=== PATIENT | male | born 1940 | race Caucasian/White ===

== ENCOUNTER 2018-07-09 16:27 | Observation (INO) | payer MEDICARE, OTHER ==
[2018-07-09] MEDS ORDERED: ASPIRIN 81 MG PO STA (17:11)
[2018-07-09 17:14] LABS: Basophils # (A) 0.1 k/uL (0-0.2); Basophils % (A) 1 %; Eosinophils # (A) 0.2 k/uL (0-0.7); Eosinophils % (A) 4 %; HCT 35.9 % (39.0-53.0); HGB 12.4 gm/dL (13.0-17.5); Lymphocytes # (A) 1.3 k/uL (1.0-4.8); Lymphocytes % (A) 29 %; MCH 31.4 pg (25.0-35.0); MCHC 34.4 g/dL (31.0-37.0); Mean Platelet Volume 6.7; Monocytes # (A) 0.4 k/uL (0-1.0); Monocytes % (A) 10 %; Neutrophils # (A) 2.3 k/uL (1.3-7.7); Neutrophils % (A) 53 %; Platelet Count 198 k/uL (150-450); RBC 3.95 m/uL (4.30-5.90); RDW 13.5 % (11.5-15.5); WBC 4.4 k/uL (3.8-10.6)
[2018-07-09 17:22] LABS: Calcium 9.2 mg/dL (8.4-10.2); Potassium 4.1 mmol/L (3.5-5.1); Total Bilirubin 0.5 mg/dL (0.2-1.3); Total Protein 6.6 g/dL (6.3-8.2)
[2018-07-09 17:23] LABS: INR 1.1 (<1.2); Partial Thromboplastin Time 23.6 sec (22.0-30.0); Prothrombin Time 10.4 sec (9.0-12.0)
--- NOTE | 2018-07-09 17:36 | ED ---
Chest Pain HPI - General Source: patient, RN notes reviewed Mode of arrival: wheelchair Limitations: altered mental status <Qasim Henriquez - Last Filed: 07/09/18 18:45> <Odin Dhillon - Last Filed: 07/09/18 22:14> - General Chief Complaint: Chest Pain Stated Complaint: Chest Pain Time Seen by Provider: 07/09/18 17:10 - History of Present Illness Initial Comments: 78-year-old male presents emergency Department with chief complaint of chest pain. Patient states started approximately an hour ago. He states initially it was a 7/10 pain and anterior to left side. The pain had dulled prior to leaving the house and has essentially dissipated. Patient does have extensive cardiac history including 7 stents, hyperlipidemia, hypertension and diabetes. Patient denies any shortness breath, diaphoretic episodes, headache, dizziness, nausea vomiting. Patient states that he did injure the right side of his chest wall as he was reaching back to get into his pocket he felt that he strained a muscle. He states that pain is not present currently. 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 (Qasim Henriquez) - Related Data Home Medications Medication Instructions Recorded Confirmed Acetyl L Carnitine 500 500 mg PO DAILY 07/09/18 07/09/18 Acetylcysteine [Nac] 500 mg PO DAILY 07/09/18 07/09/18 Ascorbic Acid [Vitamin C] 2,000 mg PO DAILY 07/09/18 07/09/18 Aspirin [Adult Low Dose Aspirin EC] 81 mg PO DAILY 07/09/18 07/09/18 Cholecalciferol [Vitamin D3] 5,000 unit PO DAILY 07/09/18 07/09/18 Citalopram Hydrobromide [CeleXA] 10 mg PO DAILY 07/09/18 07/09/18 Clopidogrel [Plavix] 75 mg PO DAILY 07/09/18 07/09/18 Cognifactors 2 cap PO BID 07/09/18 07/09/18 Curcumin 95 500 mg PO DAILY 07/09/18 07/09/18 Cyanocobalamin [Vitamin B-12 1,000 mcg SQ TUFR 07/09/18 07/09/18 Injection] Fenofibrate Nanocrystallized 145 mg PO DAILY 07/09/18 07/09/18 [Fenofibrate] Folate 5,000 mcg PO DAILY 07/09/18 07/09/18 L.acidoph,Paracasei, B.lactis 1 cap PO DAILY 07/09/18 07/09/18 [Probiotic] Levothyroxine Sodium [Synthroid] 250 mcg PO DAILY 07/09/18 07/09/18 Magnesium Potassium 250-100 2 tab PO BID 07/09/18 07/09/18 Melatonin 3 mg PO HS PRN 07/09/18 07/09/18 Multivitamins, Thera [Multivitamin 1 tab PO DAILY 07/09/18 07/09/18 (formulary)] Nattokinase 50 mg PO HS 07/09/18 07/09/18 Opti Zinc 30 mg PO DAILY 07/09/18 07/09/18 Pantoprazole [Protonix] 40 mg PO DAILY 07/09/18 07/09/18 Prasterone (Dhea)/Calcium Carb 1 tab PO DAILY 07/09/18 07/09/18 [Dhea 50 mg Tablet] Resveratrol 300 mg PO DAILY 07/09/18 07/09/18 Rivastigmine Tartrate [Exelon] 6 mg PO BID 07/09/18 07/09/18 Simvastatin [Zocor] 40 mg PO HS 07/09/18 07/09/18 Tamsulosin HCl [Flomax] 0.4 mg PO HS 07/09/18 07/09/18 Ubidecarenone [Co Q-10] 100 mg PO DAILY 07/09/18 07/09/18 Vitamin K2 100 mg PO DAILY 07/09/18 07/09/18 glipiZIDE XL [Glucotrol XL] 5 mg PO DAILY 07/09/18 07/09/18 quiNINE SULFATE 324 mg PO DAILY PRN 07/09/18 07/09/18 sitaGLIPtin PHOSPHATE [Januvia] 100 mg PO DAILY 07/09/18 07/09/18 Allergies Allergy/AdvReac Type Severity Reaction Status Date / Time No Known Allergies Allergy Verified 07/09/18 17:58 Review of Systems ROS Other: All systems not noted in ROS Statement are negative. <Qasim Henriquez - Last Filed: 07/09/18 18:45> ROS Other: All systems not noted in ROS Statement are negative. <Odin Dhillon - Last Filed: 07/09/18 22:14> ROS Statement: Those systems with pertinent positive or pertinent negative responses have been documented in the HPI. EKG Findings - EKG Comments: EKG Findings:: EKG 0.16:42 normal sinus rhythm with a rate of 78 OH 184 QRS 98 QT/QTC 424/[address] elevation or depression noted <Qasim Henriquez Joshua - Last Filed: 07/09/18 18:45> Past Medical History Past Medical History: Coronary Artery Disease (CAD), Dementia, Hyperlipidemia, Hypertension Additional Past Medical History / Comment(s): diverticulitis History of Any Multi-Drug Resistant Organisms: None Reported Past Surgical History: Bowel Resection, Heart Catheterization With Stent, Orthopedic Surgery, Pacemaker Additional Past Surgical History / Comment(s): hazel knee Past Psychological History: No Psychological Hx Reported Smoking Status: Former smoker Past Alcohol Use History: None Reported Past Drug Use History: None Reported <Qasim Henriquez M - Last Filed: 07/09/18 18:45> - Past Family History Father Family Medical History: Unable to Obtain Additional Family Medical History / Comment(s): patient cant remember Mother Family Medical History: Unable to Obtain Additional Family Medical History / Comment(s): patient cant remember <Odin Dhillon N - Last Filed: 07/09/18 22:14> General Exam Limitations: no limitations General appearance: alert, in no apparent distress Head exam: Present: atraumatic, normocephalic, normal inspection Respiratory exam: Present: normal lung sounds bilaterally. Absent: respiratory distress, wheezes, rales, rhonchi, stridor, chest wall tenderness Cardiovascular Exam: Present: regular rate, normal rhythm, normal heart sounds. Absent: systolic murmur, diastolic murmur, rubs, gallop, clicks GI/Abdominal exam: Present: soft, normal bowel sounds. 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 Patient has extensive cardiac history including multiple stents, coronary disease, hyponatremia, hypertension. Patient troponin is 0.017. Patient will be admitted for serial enzymes and cardiology evaluation. (Qasim Henriquez) 78-year-old male presenting for chest pain. Patient's pain is resolved at the time my evaluation. He does have significant history of coronary artery disease. Last heart cath was in 2012 according to the patient. Patient remains asymptomatic while in the emergency department, he will be In observation for serial cardiac enzymes and cardiology consultation. (Odin Dhillon) Disposition <Qasim Henriquez - Last Filed: 07/09/18 18:45> <Odin Dhillon - Last Filed: 07/09/18 22:14> Clinical Impression: Chest pain Disposition: ADMITTED IP TO THIS HOSP Condition: Stable
[2018-07-09 17:39] LABS: Creatine Kinase MB 1.3 ng/mL (0.0-2.4); Troponin I 0.017 ng/mL (0.000-0.034)
--- NOTE | 2018-07-09 18:28 | XR ---
EXAMINATION TYPE: XR chest 2V DATE OF EXAM: 07/09/2018 COMPARISON: NONE HISTORY: Chest pain TECHNIQUE: Frontal and lateral views of the chest are obtained. FINDINGS: There is no heart failure nor confluent pneumonic infiltrate. Costophrenic angles are alicia r. Heart size is normal. Thoracic aorta is atheromatous. There are chest leads. There is left axillar y pacemaker with the lead tips in the right ventricle. IMPRESSION: No active cardiopulmonary disease. Right shoulder prosthesis.
[2018-07-09] MEDS ORDERED: NITROGLYCERIN SL TABS 0.4 MG TAB SUBLINGUAL PRN (18:46)
[2018-07-09] MEDS ORDERED: MELATONIN 3 MG TABLET PO PRN (19:46)
[2018-07-09] MEDS ORDERED: NALOXONE 0.4 MG/ML 1 ML VIAL IV PRN (20:25)
[2018-07-09 20:27] LABS: Glucose,Whole Blood 143 mg/dL (75-99)
[2018-07-09] MEDS: INSULIN ASPART 100 UNIT/ML 1 ML 10 ML VIAL SQ SCH (20:28)
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
[2018-07-09] MEDS ORDERED: TAMSULOSIN 0.4 MG CAP.ER.24H PO SCH (21:00)
[2018-07-09] MEDS ORDERED: ATORVASTATIN 20 MG TAB PO SCH (21:00)
[2018-07-09] MEDS: HEPARIN SODIUM,PORCINE 5,000 UNIT/ML 1 ML VIAL SQ SCH (23:00)
[2018-07-09 23:26] LABS: Creatine Kinase MB 1.6 ng/mL (0.0-2.4); Troponin I 0.018 ng/mL (0.000-0.034)
[2018-07-10 03:29] VITALS: RESP 18
[2018-07-10 04:50] LABS: Basophils % (A) 1 %; Eosinophils # (A) 0.2 k/uL (0-0.7); Eosinophils % (A) 6 %; HCT 37.2 % (39.0-53.0); HGB 12.8 gm/dL (13.0-17.5); Lymphocytes # (A) 1.5 k/uL (1.0-4.8); Lymphocytes % (A) 35 %; MCH 31.4 pg (25.0-35.0); MCHC 34.2 g/dL (31.0-37.0); MCV 91.6 fL (80.0-100.0); Monocytes # (A) 0.5 k/uL (0-1.0); Monocytes % (A) 11 %; Neutrophils # (A) 1.8 k/uL (1.3-7.7); Neutrophils % (A) 44 %; Platelet Count 192 k/uL (150-450); RBC 4.06 m/uL (4.30-5.90); RDW 13.5 % (11.5-15.5); WBC 4.2 k/uL (3.8-10.6)
[2018-07-10 05:01] LABS: Calcium 9.3 mg/dL (8.4-10.2); Potassium 4.2 mmol/L (3.5-5.1); Total Bilirubin 0.4 mg/dL (0.2-1.3); Total Protein 6.7 g/dL (6.3-8.2)
[2018-07-10 05:34] LABS: Creatine Kinase MB 2.4 ng/mL (0.0-2.4); Troponin I 0.02 ng/mL (0.000-0.034)
[2018-07-10] MEDS ORDERED: LEVOTHYROXINE 125 MCG TAB PO SCH (06:30)
[2018-07-10 06:49] LABS: Glucose,Whole Blood 127 mg/dL (75-99)
[2018-07-10] MEDS ORDERED: PANTOPRAZOLE 40 MG TABLET PO SCH (07:30)
[2018-07-10] MEDS ORDERED: CLOPIDOGREL 75 MG TAB PO SCH (09:00)
[2018-07-10] MEDS ORDERED: ASPIRIN 81 MG PO SCH (09:00)
[2018-07-10] MEDS ORDERED: FENOFIBRATE 160 MG TAB PO SCH (09:00)
[2018-07-10] MEDS ORDERED: CITALOPRAM HYDROBROMIDE 10 MG TAB PO SCH (09:00)
[2018-07-10] MEDS ORDERED: ASPIRIN 325 MG TAB PO SCH (09:00)
[2018-07-10] MEDS ORDERED: REGADENOSON 0.4 MG/5 ML SYRINGE IV ONE (09:11)
[2018-07-10] MEDS ORDERED: AMINOPHYLLINE 500 MG/20 ML VIAL IV PRN (09:11)
[2018-07-10] MEDS: INSULIN ASPART 100 UNIT/ML 1 ML 10 ML VIAL SQ SCH (09:27)
[2018-07-10] MEDS ORDERED: LISINOPRIL 10 MG TAB PO SCH (10:00)
--- NOTE | 2018-07-10 10:44 | P.CRDCN ---
History of Present Illness History of present illness: Mr. Ellsworth is a pleasant 78-year-old male past medical history significant for coronary artery disease s/p multiple stents, 6 or 7 per the , hypertension, bradycardia s/p pacemaker implantation, dyslipidemia, diabetes mellitus and alzheimers/dementia. The patient is alert and conversational but unable to verbalize or recall any of the previous days events or his symptoms. He verbalizes at the time of my exam he is chest pain free with no shortness of breath, dizziness, palpitations, nausea, vomiting or diaphoresis. All information is obtained from his . Jaki states they flew in from [place] to stay with their son 2 days ago. She feels as though he hasn't been acting himself since they got here. Yesterday while sitting in the recliner he told his he had a pain in the left precordial region. There was mild labored breathing per the family. He never complained of dizziness, nausea, vomiting, diaphoresis or palpitations. Due to his cardiac history they brought him in for evaluation. At the time of my exam he is seen laying flat in bed in no acute distress. He doesn't recall having any symptoms of chest pain or shortness of breath. He follows with a legal administrator from [facility], Dr. Polanco. EKG reveals sinus mechanism with no acute ST or T-wave abnormalities noted. Repeat this morning reveals atrial paced rhythm. Chest xray negative for an acute cardiopulmonary process. Laboratory data reviewed, hemoglobin 12.8, platelets 192, sodium 138, potassium 4.2, creatinine 0.99, cardiac enzymes negative 3, LDL 85, HDL 33, triglycerides 233 with total cholesterol 165. Current cardiac medications include simvastatin 40 mg daily, fenofibrate 145 mg daily, Plavix 75 mg daily and aspirin 81 mg daily. There are no old records to review. states his pacemaker was placed 03/2017 and his last catherization and stent was done in 2012. Records received from his primary legal administrator indicate he has known multivessel coronary artery disease with previous intervention of the circumflex and RCA. Review of Systems At the time of my exam: CONSTITUTIONAL: Denies fever. Denies chills. EYES: Denies blurred vision. Denies vision changes. Denies eye pain. EARS, NOSE, MOUTH & THROAT: Denies headache. Denies sore throat. Denies ear pain. CARDIOVASCULAR: Denies chest pain. Denies shortness of breath. Denies orthopnea. Denies PND. Denies palpitations. RESPIRATORY: Denies cough. GASTROINTESTINAL: Denies abdominal pain. Denies diarrhea. Denies constipation. Denies nausea. Denies vomiting. MUSCULOSKELETAL: Denies myalgias. INTEGUMENTARY: Denies pruitis. Denies rash. NEUROLOGIC: Denies numbness. Denies tingling. Denies weakness. PSYCHIATRIC: Denies anxiety. Denies depression. ENDOCRINE: Denies fatigue. Denies weight change. Denies polydipsia. Denies polyurina. GENITOURINARY: Denies burning, hematuria or urgency with micturation. HEMATOLOGIC: Denies history of anemia. Denies bleeding. Past Medical History Past Medical History: Coronary Artery Disease (CAD), Dementia, Diabetes Mellitus , Hyperlipidemia, Hypertension Additional Past Medical History / Comment(s): diverticulitis, pacemaker 2/2 bradycardia Last Myocardial Infarction Date:: 4 years ago per patient report History of Any Multi-Drug Resistant Organisms: None Reported Past Surgical History: Bowel Resection, Heart Catheterization With Stent, Orthopedic Surgery, Pacemaker Additional Past Surgical History / Comment(s): hazel knee Past Anesthesia/Blood Transfusion Reactions: No Reported Reaction Date of Last Stent Placement:: unk Type of Cardiac Device: Permanent Pacemaker Device Placement Date:: unk Past Psychological History: No Psychological Hx Reported Smoking Status: Former smoker Past Alcohol Use History: None Reported Past Drug Use History: None Reported - Past Family History Father Family Medical History: Unable to Obtain Additional Family Medical History / Comment(s): patient cant remember Mother Family Medical History: Unable to Obtain Additional Family Medical History / Comment(s): patient cant remember Medications and Allergies Home Medications Medication Instructions Recorded Confirmed Type Acetyl L Carnitine 500 500 mg PO DAILY 07/09/18 07/09/18 History Acetylcysteine [Nac] 500 mg PO DAILY 07/09/18 07/09/18 History Ascorbic Acid [Vitamin C] 2,000 mg PO DAILY 07/09/18 07/09/18 History Aspirin [Adult Low Dose Aspirin EC] 81 mg PO DAILY 07/09/18 07/09/18 History Cholecalciferol [Vitamin D3] 5,000 unit PO DAILY 07/09/18 07/09/18 History Citalopram Hydrobromide [CeleXA] 10 mg PO DAILY 07/09/18 07/09/18 History Clopidogrel [Plavix] 75 mg PO DAILY 07/09/18 07/09/18 History Cognifactors 2 cap PO BID 07/09/18 07/09/18 History Curcumin 95 500 mg PO DAILY 07/09/18 07/09/18 History Cyanocobalamin [Vitamin B-12 1,000 mcg SQ TUFR 07/09/18 07/09/18 History Injection] Fenofibrate Nanocrystallized 145 mg PO DAILY 07/09/18 07/09/18 History [Fenofibrate] Folate 5,000 mcg PO DAILY 07/09/18 07/09/18 History L.acidoph,Paracasei, B.lactis 1 cap PO DAILY 07/09/18 07/09/18 History [Probiotic] Levothyroxine Sodium [Synthroid] 250 mcg PO DAILY 07/09/18 07/09/18 History Magnesium Potassium 250-100 2 tab PO BID 07/09/18 07/09/18 History Melatonin 3 mg PO HS PRN 07/09/18 07/09/18 History Multivitamins, Thera [Multivitamin 1 tab PO DAILY 07/09/18 07/09/18 History (formulary)] Nattokinase 50 mg PO HS 07/09/18 07/09/18 History Opti Zinc 30 mg PO DAILY 07/09/18 07/09/18 History Pantoprazole [Protonix] 40 mg PO DAILY 07/09/18 07/09/18 History Prasterone (Dhea)/Calcium Carb 1 tab PO DAILY 07/09/18 07/09/18 History [Dhea 50 mg Tablet] Resveratrol 300 mg PO DAILY 07/09/18 07/09/18 History Rivastigmine Tartrate [Exelon] 6 mg PO BID 07/09/18 07/09/18 History Simvastatin [Zocor] 40 mg PO HS 07/09/18 07/09/18 History Tamsulosin HCl [Flomax] 0.4 mg PO HS 07/09/18 07/09/18 History Ubidecarenone [Co Q-10] 100 mg PO DAILY 07/09/18 07/09/18 History Vitamin K2 100 mg PO DAILY 07/09/18 07/09/18 History glipiZIDE XL [Glucotrol XL] 5 mg PO DAILY 07/09/18 07/09/18 History quiNINE SULFATE 324 mg PO DAILY PRN 07/09/18 07/09/18 History sitaGLIPtin PHOSPHATE [Januvia] 100 mg PO DAILY 07/09/18 07/09/18 History Allergies Allergy/AdvReac Type Severity Reaction Status Date / Time No Known Allergies Allergy Verified 07/09/18 17:58 Physical Exam Vitals: Vital Signs Temp Pulse Pulse Pulse Resp BP BP 07/10/18 07:30 97.7 F 89 18 07/10/18 04:10 162/72 07/10/18 03:28 97.7 F 60 18 172/100 07/10/18 03:20 16 07/09/18 23:52 98.2 F 68 16 173/71 07/09/18 23:02 16 07/09/18 20:00 16 07/09/18 19:41 98.4 F 68 16 180/70 07/09/18 18:53 97.7 F 67 18 162/72 07/09/18 17:36 79 18 183/79 07/09/18 17:25 74 07/09/18 17:23 70 18 197/84 07/09/18 16:59 98.2 F 74 20 135/59 BP Pulse Ox 07/10/18 07:30 177/90 97 07/10/18 04:10 07/10/18 03:28 97 07/10/18 03:20 07/09/18 23:52 94 L 07/09/18 23:02 07/09/18 20:00 07/09/18 19:41 95 07/09/18 18:53 100 07/09/18 17:36 95 07/09/18 17:25 07/09/18 17:23 96 07/09/18 16:59 97 Intake and Output 07/09/18 07/10/18 07/10/18 22:59 06:59 14:59 Other: Voiding Method Toilet Toilet # Voids 3 Weight 112.037 kg Blood pressure 177/90 heart rate 89 afebrile maintaining oxygen saturation on room air GENERAL: This is a 78-year-old male in no apparent distress at the time of my examination. HEENT: Head is atraumatic, normocephalic. Pupils are equal, round. Sclerae anicteric. Conjunctivae are clear. Mucous membranes of the mouth are moist. Neck is supple. There is no jugular venous distention. No carotid bruit is heard. LUNGS: Clear to auscultation no wheezes, rales or rhonchi. No chest wall tenderness is noted on palpation or with deep breathing. HEART: Regular rate and rhythm without murmurs, rubs or gallops. S1 and S2 heard. ABDOMEN: Soft, nontender. Bowel sounds are heard. No organomegaly noted. EXTREMITIES: No evidence of peripheral edema and no calf tenderness noted. VASCULAR: Radial and dorsalis pedis pulses palpated, no evidence of clubbing. NEUROLOGIC: Patient is awake, alert and oriented. Confused about situation and poor recent memory recall. Results 07/10/18 04:37 07/10/18 04:37 Cardiac Enzymes 07/09/18 07/09/18 07/09/18 Range/Units 16:53 16:53 22:33 AST 38 (17-59) U/L CK-MB (CK-2) 1.3 1.6 (0.0-2.4) ng/mL Troponin I 0.017 0.018 (0.000-0.034) ng/mL 07/10/18 07/10/18 Range/Units 04:37 04:37 AST 36 (17-59) U/L CK-MB (CK-2) 2.4 (0.0-2.4) ng/mL Troponin I 0.020 (0.000-0.034) ng/mL Coagulation 07/09/18 Range/Units 16:53 PT 10.4 (9.0-12.0) sec APTT 23.6 (22.0-30.0) sec Lipids 07/10/18 Range/Units 04:37 Triglycerides 233 H (<150) mg/dL Cholesterol 165 (<200) mg/dL HDL Cholesterol 33 L (40-60) mg/dL CBC 07/09/18 07/10/18 Range/Units 16:53 04:37 WBC 4.4 4.2 (3.8-10.6) k/uL RBC 3.95 L 4.06 L (4.30-5.90) m/uL Hgb 12.4 L 12.8 L (13.0-17.5) gm/dL Hct 35.9 L 37.2 L (39.0-53.0) % Plt Count 198 192 (150-450) k/uL Comprehensive Metabolic Panel 07/09/18 07/10/18 Range/Units 16:53 04:37 Sodium 137 138 (137-145) mmol/L Potassium 4.1 4.2 (3.5-5.1) mmol/L Chloride 101 102 (98-107) mmol/L Carbon Dioxide 24 26 (22-30) mmol/L BUN 19 19 (9-20) mg/dL Creatinine 0.99 0.99 (0.66-1.25) mg/dL Glucose 199 H 118 H (74-99) mg/dL Calcium 9.2 9.3 (8.4-10.2) mg/dL AST 38 36 (17-59) U/L ALT 44 42 (21-72) U/L Alkaline Phosphatase 48 41 (38-126) U/L Total Protein 6.6 6.7 (6.3-8.2) g/dL Albumin 4.0 4.0 (3.5-5.0) g/dL Current Medications Generic Name Dose Route Start Last Admin Trade Name Freq PRN Reason Stop Dose Admin Aspirin 325 mg 07/10/18 09:00 Aspirin PO DAILY [facility] Atorvastatin Calcium 20 mg 07/09/18 21:00 07/09/18 20:27 Lipitor PO 20 mg HS TUNDE Administration Citalopram Hydrobromide 10 mg 07/10/18 09:00 Celexa PO DAILY [facility] Clopidogrel Bisulfate 75 mg 07/10/18 09:00 Plavix PO DAILY [facility] Donepezil HCl 10 mg 07/10/18 09:00 Aricept PO DAILY [facility] Fenofibrate 160 mg 07/10/18 09:00 Lofibra PO DAILY [facility] Heparin Sodium (Porcine) 5,000 unit 07/10/18 00:00 07/09/18 23:00 Heparin SQ 5,000 unit Q8HR TUNDE Administration Insulin Aspart 0 unit 07/09/18 21:00 07/09/18 20:28 Novolog SQ 1 unit ACHS [facility] Administration Protocol Levothyroxine Sodium 250 mcg 07/10/18 06:30 07/10/18 06:49 Synthroid PO 250 mcg DAILY@0630 TUNDE Administration Melatonin 3 mg 07/09/18 19:46 Melatonin PO HS PRN Insomnia Naloxone HCl 0.2 mg 07/09/18 20:25 Narcan IV Q2M PRN Opioid Reversal Nitroglycerin 0.4 mg 07/09/18 18:46 Nitrostat SUBLINGUAL Q5M PRN Chest Pain Pantoprazole Sodium 40 mg 07/10/18 07:30 Protonix PO AC-BRKFST TUNDE Tamsulosin HCl 0.4 mg 07/09/18 21:00 07/09/18 20:28 Flomax PO 0.4 mg HS TUNDE Administration Intake and Output 07/09/18 07/10/18 07/10/18 22:59 06:59 14:59 Other: Voiding Method Toilet Toilet # Voids 3 Weight 112.037 kg 07/10/18 04:37 07/10/18 04:37 Assessment and Plan Assessment: ASSESSMENT Chest pain, atypical. An acute coronary event has been ruled out with no EKG evidence of ischemia and negative cardiac enzymes. History of coronary artery disease, most recent catheterization 2012 per family History of permanent pacemaker implantation, 03/2017 Hypertension, not currently on antihypertensive therapy blood pressure consistently elevated since admission Dyslipidemia Diabetes mellitus Alzheimers/dementia PLAN Obtain records from his current legal administrator in [place]. Obtain 2D echocardiogram and doppler study to assess cardiac structure and function. Perform Lexiscan stress test to assess for reversible cardiac ischemia. Add lisinopril 10 mg daily, first dose now. If abnormality seen on stress test will consider coronary angiography. Plan has been discussed with vs conservative medical management and she would like to proceed with stress test. Further recommendations to follow based on clinical course. Thank you kindly for this consultation. Nurse Practitioner note has been reviewed, I agree with a documented findings and plan of care. Patient was seen and examined.
--- NOTE | 2018-07-10 12:02 | NM ---
EXAMINATION TYPE: NM stress lexiscan cardiolite DATE OF EXAM: 07/10/2018 COMPARISON: NONE HISTORY: Chest pain TECHNIQUE: After the intravenous administration of 10.84 mCi Tc 99m Sestamibi - Cardiolite resting S PECT images acquired 45 minutes post injection. The patient received 0.4mg Lexiscan, 25.1 mCi Tc 99m Sestamibi - Stress images obtained [address] injection FINDINGS: Review of stress and rest SPECT images demonstrates no distinct perfusion abnormality. Gated analysi s shows normal wall motion with an estimated left ventricular ejection fraction of 47 %. IMPRESSION: No scintigraphic evidence for reversible ischemia.
[2018-07-10 12:09] LABS: Glucose,Whole Blood 121 mg/dL (75-99)
[2018-07-10] MEDS ORDERED: QUININE SULFATE 324 MG PO PRN (12:13)
[2018-07-10] MEDS ORDERED: RESVERATROL PO SCH (12:15)
[2018-07-10] MEDS ORDERED: ZINC PO SCH (12:15)
[2018-07-10] MEDS ORDERED: CHOLECALCIFEROL 1,000 UNIT TAB PO SCH (12:15)
[2018-07-10] MEDS ORDERED: VITAMIN K2 100 MG PO SCH (12:15)
[2018-07-10] MEDS ORDERED: CALCIUM CARBONATE PO SCH (12:15)
[2018-07-10] MEDS ORDERED: NON-FORMULARY DRUG (Aspirin [Adult Low Dose Aspirin Ec] 81 MG) PO SCH (12:15)
[2018-07-10] MEDS ORDERED: MAGNESIUM POTASSIUM PO SCH (12:15)
[2018-07-10] MEDS ORDERED: MULTIVITAMINS, THERA 1 EACH TAB PO SCH (12:15)
[2018-07-10] MEDS ORDERED: ACETYL CARNITINE PO SCH (12:15)
[2018-07-10] MEDS ORDERED: [UNRECOGNIZED DRUG - OTHER] PO SCH (12:15)
[2018-07-10] MEDS ORDERED: Ubidecarenone [Co Q-10] 100 MG PO SCH (12:15)
[2018-07-10] MEDS ORDERED: FOLATE PO SCH (12:15)
[2018-07-10] MEDS ORDERED: ASCORBIC ACID 500 MG TAB PO SCH (12:15)
[2018-07-10] MEDS ORDERED: ACETYLCYSTEINE 500 MG PO SCH (12:15)
[2018-07-10] MEDS ORDERED: CURCUMIN PO SCH (12:15)
[2018-07-10] MEDS ORDERED: PRASTERONE PO SCH (12:15)
[2018-07-10] MEDS ORDERED: LACTOBACILLUS ACIDOPH & BULGAR 1 EACH PACKET PO SCH (12:15)
[2018-07-10 12:21] VITALS: BP 165/83; PULSE 95; TEMP 97.8
[2018-07-10] MEDS: HEPARIN SODIUM,PORCINE 5,000 UNIT/ML 1 ML VIAL SQ SCH (12:53)
[2018-07-10] MEDS: DONEPEZIL 10 MG TAB PO SCH ×2 (12:54→15:29)
--- NOTE | 2018-07-10 13:32 | ECHOF ---
Referral Reason: MEASUREMENTS -------- HEIGHT: 182.9 cm WEIGHT: 112.0 kg BP: IVSd: 1.5 cm (0.6 - 1.1) LVIDd: 5.8 cm (3.9 - 5.3) LVPWd: 1.4 cm (0.6 - 1.1) IVSs: 2.0 cm LVIDs: 3.6 cm LVPWs: 1.3 cm LAESV Index (A-L): 28.11 ml/m Ao Diam: 3.4 cm (2.0 - 3.7) AV Cusp: 1.6 cm (1.5 - 2.6) LA Diam: 3.2 cm (2.7 - 3.8) MV EXCURSION: 21.518 mm (> 18.000) MV EF SLOPE: 38 mm/s (70 - 150) EPSS: 0.5 cm MV E Rogelio: 0.47 m/s MV DecT: 275 ms MV A Rogelio: 0.57 m/s MV E/A Ratio: 0.84 RAP: 5.00 mmHg RVSP: 31.22 mmHg FINDINGS -------- Sinus rhythm. This was a technically good study. The left ventricular size is normal. There is moderate concentric left ventricular hypertrophy. O verall left ventricular systolic function is low-normal with, an EF between 50 - 55 %. The right ventricle is normal in size and function. The left atrium is normal in size. The right atrium is normal in size. Lumason used The aortic valve is trileaflet, and appears structurally normal. No aortic stenosis or regurgitation. There is trace mitral regurgitation. Trace tricuspid regurgitation present. The right ventricular systolic pressure, as measured by Dopp ler, is 31.22mmHg. Pulmonic valve appears structurally normal. The aortic root, ascending aorta and aortic arch are normal. The pericardium is normal. CONCLUSIONS -------- 1. Sinus rhythm. 2. This was a technically good study. 3. The left ventricular size is normal. 4. There is moderate concentric left ventricular hypertrophy. 5. Overall left ventricular systolic function is low-normal with, an EF between 50 - 55 %. 6. The right ventricle is normal in size and function. 7. The left atrium is normal in size. 8. The right atrium is normal in size. 9. Lumason used 10. The aortic valve is trileaflet, and appears structurally normal. No aortic stenosis or regurgitat ion. 11. There is trace mitral regurgitation. 12. Trace tricuspid regurgitation present. 13. The right ventricular systolic pressure, as measured by Doppler, is 31.22mmHg. 14. Pulmonic valve appears structurally normal. 15. The aortic root, ascending aorta and aortic arch are normal. 16. The pericardium is normal. LOG CLERK: Gladys Kruse RDCS
--- NOTE | 2018-07-10 13:41 | P.STRESS ---
- Stress Test Note Stress Test Results/Findings: Exam Performed: NM stress lexiscan cardiolite Exam Date: 07/10/18 Reason for Exam: CHEST PAIN Height: 5 ft 11 in Weight: 112.037 kg Protocol: LEXISCAN Stage: NA Duration of Exercise: NA Resting Heart Rate: 75 Resting Blood Pressure: 144/80 Maximum Achieved Heart Rate: 95 Maximum Achieved Blood Pressure: 144/80 85% PMHR: NA 100% PMHR: NA METS: NA Technologist Comment: Stress Test Results/Findings: This is a 78-year-old gentleman being evaluated for chest pains. Patient has history of hypertension, diabetes, hypercholesteremia, and family history of ischemic heart disease and also previous myocardial infarction. Stress data: Baseline EKG showed pacemaker rhythm which appears to be a dual- chamber/biventricular pacemaker rhythm. Blood pressure at rest is 144/80 with pulse rate of 75. A standard dose of Lexiscan was infused. EKGs continued to show pacemaker rhythm. Final impression: #1 Nondiagnostic Lexiscan Stress Test Because of Baseline Pacemaker Rhythm. #2. Report on the images to be given by the radiologist
--- NOTE | 2018-07-10 20:55 | P.DS ---
Providers Date of admission: 07/09/18 18:44 Expected date of discharge: 07/10/18 Attending physician: Megan Hdez DO Consults: 07/09/18 18:46 Consult Physician Urgent Consulting Provider: Ghanshyam Christianson Consult Reason/Comments: chest pain Do you want consulting provider notified?: Yes Primary care physician: Physician Nonstaff Hospital Course: Discharge Diagnosis: Noncardiac chest pain Hypertension with elevated blood pressures Dyslipidemia Diabetes mellitus Dementia Atherosclerotic coronary artery disease Permanent pacemaker Hospital Course: Patient is a 78-year-old male with a history of coronary artery disease status post stents, bradycardia status post pacemaker, and mild cognitive impairment presented with complaint of chest pain while visiting [place] from [place]. This was associated with sweating and confusion. In the ER he underwent an extensive evaluation. His blood pressure was slightly elevated. EKG and chest x-ray were unremarkable. Initial troponin was unremarkable. He was admitted as observation. 2 additional troponins remained negative. He subsequently underwent an echocardiogram which showed a preserved ejection fraction. Lexiscan showed no signs of ischemia. He has slightly elevated blood pressures during this hospitalization. Cardiology had initially started lisinopril. However after discussion with use recently been taken off his blood pressure medication Micardis secondary to low blood pressures and lightheadedness. I've given her instructions to check his blood pressure well here visiting [place] and to call my office if it is greater than 160. Remains greater than 160 will real reinitiate his Micardis. Upon return to [place] he will immediately follow-up with his senior enlisted advisor and family care physician. I have instructed them to resume all indications. Patient is unable to clarify with me exactly the nature of his chest pain. We did walk the hallways and he had no recurrence of chest pain or shortness of breath during ambulation. Patient was determined stable for discharge. I gave explicit instructions to the that he should return to the ER. Developed worsening shortness of breath, syncope, diaphoresis, or recurrent chest pain as well as any other concerning symptoms. Patient seen and examined at bedside. No chest pain, shortness of breath, nausea, or vomiting. Vital signs reviewed and stable. General: non toxic, no distress, appears at stated age Derm: warm, dry Head: atraumatic, normocephalic, symmetric Eyes: EOMI, no lid lag, anicteric sclera Mouth: no lip lesion, mucus membranes moist Cardiovascular: S1S2 reg, no murmur, positive posterior tibial pulse bilateral, Lungs: CTA bilateral, no rhonchi, no rales , no accessory muscle use Abdominal: soft, nontender to palpation, no guarding, no appreciable organomegaly Ext: no gross muscle atrophy, no edema, no contractures Neuro: CN II-XI grossly intact, no focal neuro deficits Psych: Alert, oriented, appropriate affect A total of 25 minutes of time were spent preparing this complex discharge summary . Pertinent Studies: Lexiscan-no reversible ischemia Echo-Ejection fraction 50-55% Patient Condition at Discharge: Stable Plan - Discharge Summary Discharge Rx Participant: Yes New Discharge Prescriptions: Continue Prasterone (Dhea)/Calcium Carb [Dhea 50 mg Tablet] 1 tab PO DAILY Vitamin K2 100 mg PO DAILY Melatonin 3 mg PO HS PRN PRN Reason: Insomnia Citalopram Hydrobromide [CeleXA] 10 mg PO DAILY Cholecalciferol [Vitamin D3] 5,000 unit PO DAILY Ascorbic Acid [Vitamin C] 2,000 mg PO DAILY Resveratrol 300 mg PO DAILY L.acidoph,Paracasei, B.lactis [Probiotic] 1 cap PO DAILY Cyanocobalamin [Vitamin B-12 Injection] 1,000 mcg SQ TUFR Opti Zinc 30 mg PO DAILY Nattokinase 50 mg PO HS Multivitamins, Thera [Multivitamin (formulary)] 1 tab PO DAILY Clopidogrel [Plavix] 75 mg PO DAILY Magnesium Potassium 250-100 2 tab PO BID Curcumin 95 500 mg PO DAILY Ubidecarenone [Co Q-10] 100 mg PO DAILY sitaGLIPtin PHOSPHATE [Januvia] 100 mg PO DAILY Aspirin [Adult Low Dose Aspirin EC] 81 mg PO DAILY Tamsulosin HCl [Flomax] 0.4 mg PO HS Simvastatin [Zocor] 40 mg PO HS Rivastigmine Tartrate [Exelon] 6 mg PO BID quiNINE SULFATE 324 mg PO DAILY PRN PRN Reason: LEG CRAMPS Pantoprazole [Protonix] 40 mg PO DAILY Levothyroxine Sodium [Synthroid] 250 mcg PO DAILY Fenofibrate Nanocrystallized [Fenofibrate] 145 mg PO DAILY glipiZIDE XL [Glucotrol XL] 5 mg PO DAILY Acetylcysteine [Nac] 500 mg PO DAILY Folate 5,000 mcg PO DAILY Acetyl L Carnitine 500 500 mg PO DAILY Cognifactors 2 cap PO BID Discharge Medication List Acetyl L Carnitine 500 500 mg PO DAILY 07/09/18 [History] Acetylcysteine [Nac] 500 mg PO DAILY 07/09/18 [History] Ascorbic Acid [Vitamin C] 2,000 mg PO DAILY 07/09/18 [History] Aspirin [Adult Low Dose Aspirin EC] 81 mg PO DAILY 07/09/18 [History] Cholecalciferol [Vitamin D3] 5,000 unit PO DAILY 07/09/18 [History] Citalopram Hydrobromide [CeleXA] 10 mg PO DAILY 07/09/18 [History] Clopidogrel [Plavix] 75 mg PO DAILY 07/09/18 [History] Cognifactors 2 cap PO BID 07/09/18 [History] Curcumin 95 500 mg PO DAILY 07/09/18 [History] Cyanocobalamin [Vitamin B-12 Injection] 1,000 mcg SQ TUFR 07/09/18 [History] Fenofibrate Nanocrystallized [Fenofibrate] 145 mg PO DAILY 07/09/18 [History] Folate 5,000 mcg PO DAILY 07/09/18 [History] L.acidoph,Paracasei, B.lactis [Probiotic] 1 cap PO DAILY 07/09/18 [History] Levothyroxine Sodium [Synthroid] 250 mcg PO DAILY 07/09/18 [History] Magnesium Potassium 250-100 2 tab PO BID 07/09/18 [History] Melatonin 3 mg PO HS PRN 07/09/18 [History] Multivitamins, Thera [Multivitamin (formulary)] 1 tab PO DAILY 07/09/18 [History ] Nattokinase 50 mg PO HS 07/09/18 [History] Opti Zinc 30 mg PO DAILY 07/09/18 [History] Pantoprazole [Protonix] 40 mg PO DAILY 07/09/18 [History] Prasterone (Dhea)/Calcium Carb [Dhea 50 mg Tablet] 1 tab PO DAILY 07/09/18 [ History] Resveratrol 300 mg PO DAILY 07/09/18 [History] Rivastigmine Tartrate [Exelon] 6 mg PO BID 07/09/18 [History] Simvastatin [Zocor] 40 mg PO HS 07/09/18 [History] Tamsulosin HCl [Flomax] 0.4 mg PO HS 07/09/18 [History] Ubidecarenone [Co Q-10] 100 mg PO DAILY 07/09/18 [History] Vitamin K2 100 mg PO DAILY 07/09/18 [History] glipiZIDE XL [Glucotrol XL] 5 mg PO DAILY 07/09/18 [History] quiNINE SULFATE 324 mg PO DAILY PRN 07/09/18 [History] sitaGLIPtin PHOSPHATE [Januvia] 100 mg PO DAILY 07/09/18 [History] Follow up Appointment(s)/Referral(s): Nonstaff,Physician [Primary Care Provider] - 1-2 days Patient Instructions/Handouts: Chest Pain (GEN) Activity/Diet/Wound Care/Special Instructions: If your systolic blood pressure (top number) is greater than 160 please call our office and we can prescribe your micardis 40 mg. Heart healthy diet Activity as tolerated Return to the Emergency department with chest pain, shortness of breath, sweating, or other concerning symptoms. Discharge Disposition: HOME SELF-CARE
[2018-07-10] MEDS ORDERED: NATTOKINASE PO SCH (21:00)
[2018-07-11] MEDS ORDERED: CYANOCOBALAMIN 1,000 MCG/ML 1 ML VIAL SQ SCH (09:00)
[2018-07-11] MEDS ORDERED: LINAGLIPTIN 5 MG TABLET PO SCH (09:00)
== END 2018-07-10 15:30 | disposition home or self-care (01) ==
LOC: EC 16:27 → 3OBS 18:44
PROVIDERS: ADMIT Internal Medicine; ATTEND Internal Medicine
DX: R07.89 Other chest pain (principal); E78.5 Hyperlipidemia, unspecified; E11.9 Type 2 diabetes mellitus without complications; I25.10 Atherosclerotic heart disease of native coronary artery without angina pectoris; Z95.0 Presence of cardiac pacemaker; D64.9 Anemia, unspecified; G30.9 Alzheimer's disease, unspecified; F02.80 Dementia in other diseases classified elsewhere, unspecified severity, without behavioral disturbance, psychotic disturbance, mood disturbance, and anxiety; I10 Essential (primary) hypertension; I25.2 Old myocardial infarction; Z79.02 Long term (current) use of antithrombotics/antiplatelets; Z79.82 Long term (current) use of aspirin; Z79.899 Other long term (current) drug therapy; Z82.49 Family history of ischemic heart disease and other diseases of the circulatory system; Z87.891 Personal history of nicotine dependence; Z95.5 Presence of coronary angioplasty implant and graft
CPT/HCPCS: 96372 ×2; 99285; 36415; 93005; 93017; 85379; 83880; 80061; 80053 ×2; 82550 ×2; 82553 ×2; 84484 ×2; 85025 ×2; 85610; 85730; 71046; 78452; G0378 ×2; C8929; A9500; J1644 ×2; J2785; Q9950; 93306